=== PATIENT | female | born 1955 | race Native Hawaiian/Other Pacific Islander ===

== ENCOUNTER 2016-06-05 08:19 | Outpatient (CLI) | payer BC ==
[2016-06-05 08:36] LABS: PLATELET COUNT 201 K/uL (152-353)
[2016-06-05 08:56] LABS: POTASSIUM 4.1 mmol/L (3.6-5.2); SODIUM 138 mmol/L (136-145)
== END 2016-06-05 19:20 | disposition home or self-care (01) ==
LOC: LABW 08:19
PROVIDERS: Nurse Practitioner
DX: I10 Essential (primary) hypertension (principal); E55.9 Vitamin D deficiency, unspecified; E03.9 Hypothyroidism, unspecified; E78.00 Pure hypercholesterolemia, unspecified; E53.8 Deficiency of other specified B group vitamins
CPT/HCPCS: 36415; 80053; 80061; 82306; 82607; 84443; 85027

== ENCOUNTER 2016-09-18 12:48 | Outpatient (CLI) | payer BC | END 2016-09-18 14:00 | disposition home or self-care (01) | LOC: MAMMO 12:48 | DX: Z12.31 Encounter for screening mammogram for malignant neoplasm of breast (principal) | CPT/HCPCS: G0202-TC ==

== ENCOUNTER 2016-10-08 13:22 | Outpatient (CLI) | payer BC | END 2016-10-08 19:35 | disposition home or self-care (01) | LOC: MAMMO 13:22 | DX: N64.89 Other specified disorders of breast (principal) | CPT/HCPCS: G0206-TC ==

== ENCOUNTER 2017-04-01 07:35 | Day surgery (SDC) | payer BC ==
[2017-04-01 08:25] LABS: PLATELET COUNT 189 K/uL (152-353)
[2017-04-01 08:39] LABS: POTASSIUM 3.8 mmol/L (3.6-5.2); SODIUM 137 mmol/L (136-145)
== END 2017-04-01 10:42 | disposition home or self-care (01) ==
LOC: OR 07:35
PROVIDERS: Internal Medicine
PROC: 0DJD8ZZ Inspection of Lower Intestinal Tract, Via Natural or Artificial Opening Endoscopic (ICD-10-PCS; principal; 2017-04-01)
DX: Z12.11 Encounter for screening for malignant neoplasm of colon (principal); I10 Essential (primary) hypertension
CPT/HCPCS: 80053; 85027; J2001; J2250; J2704; J3010; J3490

== ENCOUNTER 2018-05-28 08:13 | Outpatient (CLI) | payer BC ==
[2018-05-28 09:00] LABS: PLATELET COUNT 197 K/uL (152-353)
[2018-05-28 09:05] LABS: POTASSIUM 4.4 mmol/L (3.6-5.2)
== END 2018-05-28 19:35 | disposition home or self-care (01) ==
LOC: LABW 08:13
PROVIDERS: Nurse Practitioner
DX: Z00.00 Encounter for general adult medical examination without abnormal findings (principal); E03.8 Other specified hypothyroidism; E53.8 Deficiency of other specified B group vitamins; E55.9 Vitamin D deficiency, unspecified
CPT/HCPCS: 36415; 80053; 80061; 82306; 82607; 84443; 85027

== ENCOUNTER 2020-07-04 08:51 | Outpatient (CLI) | payer BC | END 2020-07-04 21:56 | disposition home or self-care (01) | LOC: RAD 08:51 | PROVIDERS: ATTEND Internal Medicine | DX: Z13.820 Encounter for screening for osteoporosis (principal); N95.8 Other specified menopausal and perimenopausal disorders ==